=== PATIENT | male | born 1990 | race Hispanic/Latino ===

== ENCOUNTER 2019-12-09 00:52 | Emergency (ER) | payer OTHER ==
[~2019-12-09] VITALS: Ht 193 cm; Wt 100.4 kg
[2019-12-09] MEDS ORDERED: diphenhydrAMINE 50MG/ML VIAL (J1200) IM STA (01:36)
[2019-12-09] MEDS ORDERED: methylPREDNISolone INJ 125 MG/2 ML VIAL (J2930) IM ONE (01:45)
[2019-12-09 02:07] VITALS: BP 138/64
== END 2019-12-09 02:19 | disposition home or self-care (01) ==
LOC: M ED 00:52
DX: R21 Rash and other nonspecific skin eruption (principal); T78.1XXA Other adverse food reactions, not elsewhere classified, initial encounter; Y92.89 Other specified places as the place of occurrence of the external cause; Z91.013 Allergy to seafood
CPT/HCPCS: 96372; 99284; J1200; J2930